=== PATIENT | female | born 1950 | race Caucasian/White ===

== ENCOUNTER → 2018-05-08 15:56 | Outpatient (CLI) | payer MEDICARE, OTHER, SELFPAY ==
[2018-05-08 17:24] LABS: Hemoglobin A1C% w Est Avg Glu 5.5 % (4.0-6.0)
[2018-05-08 17:28] LABS: Blood Urea Nitrogen 28 mg/dL (7-17); Carbon Dioxide 29 mmol/L (22-32); Chloride 103 mmol/L (98-107); Cholesterol 146 mg/dL (140-199); Estimated Glomerular Filt Rate 55.3 mL/min (>60); Glucose 116 mg/dL (80-110); HDL Cholesterol 39 mg/dL (40-60); HEMOLYSIS < 15 (0-50); LDL Cholesterol Calculated 82 mg/dL (<100); Potassium 3.5 mmol/L (3.4-5.1); Sodium 141 mmol/L (137-145); Triglycerides 125 mg/dL (35-150)
== END ==
PROVIDERS: Visit Provider Internal Medicine
DX: I10 Essential (primary) hypertension (principal)
CPT/HCPCS: 36415; 80048; 80061; 83036

== ENCOUNTER 2019-01-02 12:48 | Day surgery (SDC) | payer MEDICARE, OTHER, SELFPAY ==
[2019-01-02 13:34] VITALS: BMI 34.0
[2019-01-02 13:41] VITALS: BP 130/80; PULSE 93; RESP 12; TEMP 36.6; O2SAT 96
[2019-01-02] MEDS: SODIUM CHLORIDE 0.9% 1,000 ML 200 ML IV (13:43)
--- NOTE | 2019-01-02 15:03 | P.HP_ITS ---
History of Present Illness Date Patient Seen: 01/02/19 Time Patient Seen: 15:01 Chief complaint: [id number] Narrative: 68-year-old female with personal history of colon polyps his last colonoscopy was 6 years ago. She presents now for colorectal surveillance. On further history today she denies any recent gastrointestinal symptoms. No nausea, vomiting, abdominal pain, loss of appetite, unexplained weight loss, change in bowel habits, diarrhea, constipation, melena, hematochezia, or bright red blood per rectum. Patient History Medical History HTN (hypertension) (Chronic) Unspecified hereditary and idiopathic peripheral neuropathy (Chronic) Menopause (Chronic) H/O migraine (Chronic) Insomnia (Chronic) H/O adenomatous polyp of colon (Chronic) Hayfever (Chronic) Anemia (Resolved ~1959) Chicken pox (Resolved ~1957) Foot pain (Resolved 2013) Measles (Resolved 1955) Mumps (Resolved 1957) Shoulder pain (Resolved ~2008) Surgical History Anesthesia complication (Resolved) History of back surgery (Resolved ~1990) History of colonoscopy with polypectomy (Resolved 2003) History of colonoscopy with polypectomy (Resolved 2012) History of dilation and curettage (Resolved) History of shoulder surgery (Resolved ~1997) History of tonsillectomy (Resolved 1961) Status post appendectomy (Resolved 1973) Status post ovarian cystectomy (Resolved 1973) Status post wrist surgery (Resolved 1999) Family History Brother Age: 59 Adopted Non-Hodgkins lymphoma Father Parkinson's disease AAA (abdominal aortic aneurysm) Mother Age: 86 Osteoporosis Sister Age: 59 Adopted Polycystic kidney disease Family/Other Colon cancer Family/Other Breast cancer Social History marital status: number of children: 1 household members: spouse and family lives independently: Yes caregiver/support person: No housing: house pets and animals: Yes (2 small dogs, snake, chickens and ducks.) education level: college (BA) occupational status: other (Retired) 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 travel history: recent ([place], yearly.) leisure activities: art (Photography), reading and other (Movies, quitling, writing.) Smoking Status: Never smoker Tobacco: How many years used: 0 quit status: quit date established (Never Started) second hand exposure: Yes (Childhood) alcohol intake: current (Glass of wine occasionally) substance use type: does not use Family & Social History Family History Brother Age: 59 Adopted Non-Hodgkins lymphoma Father Parkinson's disease AAA (abdominal aortic aneurysm) Mother Age: 86 Osteoporosis Sister Age: 59 Adopted Polycystic kidney disease Family/Other Colon cancer Family/Other Breast cancer Social History: household members spouse,family lives independently Yes caregiver/support person No Tobacco & Substance use: Smoking Status Never smoker alcohol intake current Meds Home Medications Medication Instructions Recorded Confirmed Type diphenhydramine HCl 25 mg PO BEDTIME #0 03/21/12 01/02/19 History CALCIUM CITRATE/VITAMIN D3 1 tab PO BID #0 04/18/13 12/16/18 History potassium chloride ER 10 mEq 10 meq PO QDAY #90 tab 10/02/18 01/02/19 Rx tablet,extended release triamterene 37.5 1 tab PO DAILY #90 tab 10/03/18 01/02/19 Rx mg-hydrochlorothiazide 25 mg tablet tolterodine ER 2 mg 2 mg PO DAILY #30 cap 12/16/18 01/02/19 Rx capsule,extended release 24 hr flaxseed oil 1,400 mg PO DAILY 01/02/19 01/02/19 History ranitidine HCl 150 mg PO BEDTIME 01/02/19 01/02/19 History Allergies Allergy/AdvReac Type Severity Reaction Status Date / Time adhesive [ADHESIVE] Allergy Mild TAPE--RASH Verified 01/02/19 13:31 ibuprofen [IBUPROFEN] AdvReac Mild SWELLS Verified 01/02/19 13:31 Review of Systems Review of Systems All systems reviewed & are unremarkable except as noted in HPI and below Exam Vital Signs (past 8 hours): - 01/02/19 13:41 Temperature 97.9 F Pulse Rate 93 H Respiratory Rate 12 Blood Pressure 130/80 Pulse Oximetry 96 Oxygen Delivery Method Room Air Narrative Exam Narrative: Well-nourished well-developed female in no acute distress. Alert oriented x3. Her accompanies her for my entire visit sclera nonicteric regular rate and rhythm abdomen soft, nondistended, nontender, no masses extremities show no clubbing or cyanosis Objective Labs Labs: no recent laboratory or radiographic studies for review Assessment & Plan Assessment & Plan narrative: 68-year-old female with personal history of colon polyps who presents now for colorectal surveillance. Colonoscopy is once again recommended. Technical details of the procedure were discussed. Risks, benefits, alternatives were explained. Risks including but not limited to sedation, aspiration, bleeding, pain, missed lesion, incomplete examination, need for further radiographic studies, colonic perforation, need for major abdominal surgery, and all attendant risks of major surgery were explained at [facility]. All questions were answered to her satisfaction, and she voiced understanding. Consent was placed on the chart. We will proceed as above.
--- NOTE | 2019-01-02 15:03 | PM.PREOP ---
Pre-operative Note Interval Note History & Physical reviewed/Exam performed by Physician: Yes Changes to H&P: No H&P completed within 30 days and has changed as indicated here:: Patient seen and examined today. History and physical examination placed on the chart. Obviously, no changes in the last 15 min. Proceed with colonoscopy today as planned. ASA Class (for procedural sedation): II
[2019-01-02] MEDS: fentaNYL 250 MCG/5 ML INJ IV (15:14)
[2019-01-02] MEDS: MIDAZOLAM 5 MG/5 ML VIAL IV (15:15)
--- NOTE | 2019-01-02 15:27 | PM.OP.ENDO ---
Operative Date/Time/Diagnoses Date of procedure: 01/02/19 Time of procedure: 15:27 Pre-op diagnosis: Personal history of colon polyps Post-op diagnosis: other ( diverticulosis but otherwise normal colon and rectum) Procedure & Clinicians Study performed: 1. Sedation per surgeon 2. Colonoscopy Same procedure as scheduled: Yes Indications: 68-year-old female with personal history of colon polyps. Last examination for such was 6 years ago. Colonoscopy is currently recommended. Surgeon: Hector Croft Procedure Notes SCOAP/Timeout: yes Procedure in detail: After obtaining informed consent, the patient was brought to the GI suite and placed in the left lateral decubitus position on the examination table. After placement of appropriate monitors, the patient was given incremental doses of Versed and Fentanyl until an appropriate level of sedation was achieved. A time out was held per SCOAP protocol. A digital rectal examination was performed and did not reveal any masses or obstructing lesions. The colonoscope was gently passed into the patient's anus and the entire colon navigated to the level of the cecum with minimal difficulty. Once in the cecum, the scope was withdrawn being sure to go before and beyond all mucosal folds and prominences and get an excellent examination. The findings are noted above. At the level of the rectal vault, the scope was retroflexed and the internal anal canal was examined. The scope was straightened and air aspirated from the colon. The instrument was removed from the patient's body and the procedure was concluded. The patient was allowed to awaken from sedation without difficulty and taken to the post-anesthesia care unit in good condition. Scope withdrawal time: 8:56 min Sedation minutes: 19 Findings: diverticulosis Specimen(s): none sent Complications: none Recommendations: Colonscopy in 5 years and High fiber diet Plan for aftercare: 1. Discharge home Follow up: as needed Disposition: PACU
[2019-01-02 15:31] VITALS: BP 128/60; PULSE 81; RESP 16; TEMP 36.2; O2SAT 95
[2019-01-02 15:36] VITALS: BP 134/79; PULSE 95; RESP 16; O2SAT 95
[2019-01-02 15:43] VITALS: BP 131/76; PULSE 93; RESP 15; O2SAT 96
[2019-01-02 15:58] VITALS: BP 116/66; PULSE 83; RESP 16; TEMP 36.8; O2SAT 95
== END 2019-01-02 16:13 | disposition home or self-care (01) ==
PROVIDERS: Family Provider Family Medicine; PCP Internal Medicine; Visit Provider Surgery
PROC: 0DJD8ZZ Inspection of Lower Intestinal Tract, Via Natural or Artificial Opening Endoscopic (ICD-10-PCS; CPT 45378; principal; 2019-01-02 15:00)
DX: Z86.010 Personal history of colon polyps (principal); K57.30 Diverticulosis of large intestine without perforation or abscess without bleeding; I10 Essential (primary) hypertension; G60.9 Hereditary and idiopathic neuropathy, unspecified
CPT/HCPCS: G0105; 99152; J2250; J3010

== ENCOUNTER → 2019-07-11 12:26 | Outpatient (CLI) | payer MEDICARE, OTHER, SELFPAY ==
[2019-07-11 13:25] LABS: BUN Creatinine Ratio 18.2 (6-22); Blood Urea Nitrogen 20 mg/dL (7-17); Calcium 10.3 mg/dL (8.4-10.2); Carbon Dioxide 27 mmol/L (22-32); Chloride 106 mmol/L (98-107); Estimated Glomerular Filt Rate 49.2 mL/min (>60); Glucose 87 mg/dL (80-110); HEMOLYSIS < 15 (0-50); Potassium 5.1 mmol/L (3.4-5.1); Sodium 142 mmol/L (137-145)
== END ==
PROVIDERS: PCP Internal Medicine; Visit Provider Internal Medicine
DX: I10 Essential (primary) hypertension (principal)
CPT/HCPCS: 36415; 80048

== ENCOUNTER → 2019-07-26 08:32 | Outpatient (CLI) | payer MEDICARE, OTHER, SELFPAY ==
--- NOTE | 2019-07-26 | DI.MRI.S_ITS ---
PROCEDURE: MR LUMBAR SPINE WO CON INDICATIONS: Low back pain TECHNIQUE: Noncontrast sagittal T1 spin echo and T2 fast echo, sagittal STIR, axial T1 and T2 fast spin echo through the lumbar spine. In cases with scoliosis, additional coronal T2 fast spin echo may be performed. COMPARISON: [facility], , L-SPINE WITHOUT CONTRAST, 06/22/2016, 13:04. FINDINGS: Image quality: Excellent. Alignment and Curvature: There is normal bony alignment. No spondylolisthesis Bone Marrow: Marrow is of normal overall signal. No acute vertebral body compression fractures. Spinal Cord: Conus medullaris terminates at the T12-L1 level. Visualized cord demonstrates normal signal and size. Paraspinous Soft Tissues: No paravertebral masses. L1-L2: Mild broad-based disc bulge and right lateral disc herniation is seen with bilateral facet arthrosis. Mild central canal stenosis and mild right-sided neuroforaminal narrowing is seen. L2-L3: There is decreased intervertebral disc space. Broad-based disc bulge and bilateral facet arthrosis is seen with mild to moderate central canal stenosis and mild right-sided neuroforaminal narrowing. L3-L4: Broad-based disc bulge and bilateral facet arthrosis is seen with hypertrophy of ligamentum flavum. Decreased intervertebral disc space is also noted. There is moderate to severe central canal stenosis and mild to moderate right-sided neuroforaminal narrowing. L4-L5: Decreased intervertebral disc space is seen. Broad-based disc bulge and bilateral facet arthrosis with hypertrophy of ligamentum flavum is seen with moderate to severe central canal stenosis and moderate to severe bilateral neuroforaminal narrowing. Bulging disc likely contacting exiting bilateral L4 nerve roots at this level. L5-S1: Decreased intervertebral disc space is seen. Diffuse disc bulge and bilateral facet arthrosis is seen. There is mild central canal stenosis and moderate to severe bilateral neuroforaminal narrowing. IMPRESSION: 1. Degenerative disc bulge and bilateral facet arthrosis throughout lumbar spine causing moderate to severe central canal stenosis and bilateral neuroforaminal narrowing more prominent at L3-4 and L4-5 levels as described in detail above. Finding has progressed since 2016 study. 2. No marrow edema. No acute compression fracture or spondylolisthesis. Dictated by: Alan Torres M.D. on 07/28/2019 at 10:35 Approved by: Alan Torres M.D. on 07/28/2019 at 10:38
== END ==
PROVIDERS: PCP Internal Medicine; Visit Provider Physical Medicine & Rehabilitation Pain Medicine
DX: M51.26 Other intervertebral disc displacement, lumbar region (principal); M51.27 Other intervertebral disc displacement, lumbosacral region; M47.816 Spondylosis without myelopathy or radiculopathy, lumbar region; M47.817 Spondylosis without myelopathy or radiculopathy, lumbosacral region; M48.061 Spinal stenosis, lumbar region without neurogenic claudication; M48.07 Spinal stenosis, lumbosacral region
CPT/HCPCS: 72148

== ENCOUNTER → 2020-09-20 13:36 | Outpatient (CLI) | payer MEDICARE, OTHER, SELFPAY ==
[2020-09-20 14:09] LABS: Alanine Aminotransferase 26 IU/L (<35); Albumin 4.2 g/dL (3.5-5.0); Albumin Globulin Ratio 1.2 (1.0-2.8); Alkaline Phosphatase 102 U/L (38-126); Aspartate Aminotransferase 32 IU/L (14-36); BUN Creatinine Ratio 22.1 (6-22); Bilirubin Total 0.4 mg/dL (0.2-1.3); Blood Urea Nitrogen 21 mg/dL (7-17); Carbon Dioxide 31 mmol/L (22-32); Chloride 105 mmol/L (98-107); Estimated Glomerular Filt Rate 58.2 mL/min (>60); Globulin 3.4 g/dL (1.7-4.1); Glucose 91 mg/dL (80-110); HEMOLYSIS < 15 (0-50); Potassium 4.1 mmol/L (3.4-5.1); Sodium 141 mmol/L (137-145); Total Protein 7.6 g/dL (6.3-8.2)
== END ==
PROVIDERS: PCP Internal Medicine; Referring Provider Internal Medicine; Visit Provider Internal Medicine
DX: I10 Essential (primary) hypertension (principal); N39.41 Urge incontinence
CPT/HCPCS: 36415; 80053

== ENCOUNTER → 2021-07-25 11:03 | Outpatient (CLI) | payer MEDICARE, OTHER, SELFPAY ==
[2021-07-25 12:08] LABS: Alanine Aminotransferase 19 IU/L (<35); Albumin 3.9 g/dL (3.5-5.0); Albumin Globulin Ratio 1.4 (1.0-2.8); Alkaline Phosphatase 73 U/L (38-126); Aspartate Aminotransferase 26 IU/L (14-36); BUN Creatinine Ratio 24.2 (6-22); Bilirubin Total 0.4 mg/dL (0.2-1.3); Blood Urea Nitrogen 22 mg/dL (7-17); Calcium 10.2 mg/dL (8.4-10.2); Carbon Dioxide 26 mmol/L (22-32); Chloride 109 mmol/L (98-107); Estimated Glomerular Filt Rate > 60.0 mL/min (>60); Globulin 2.7 g/dL (1.7-4.1); Glucose 88 mg/dL (80-110); HEMOLYSIS < 15 (0-50); Sodium 141 mmol/L (137-145); Total Protein 6.6 g/dL (6.3-8.2)
[2021-07-25 12:39] LABS: TSH w/ Reflex to FT4 0.38 uIU/mL (0.47-4.68)
[2021-07-25 13:06] LABS: Free T4, Direct Thyroxine 1.18 ng/dL (0.78-2.19)
== END ==
PROVIDERS: PCP Internal Medicine; Referring Provider Internal Medicine; Visit Provider Internal Medicine
DX: I10 Essential (primary) hypertension (principal); L65.9 Nonscarring hair loss, unspecified; N39.41 Urge incontinence
CPT/HCPCS: 36415; 80053; 84439; 84443

== ENCOUNTER → 2021-09-06 11:44 | Outpatient (CLI) | payer MEDICARE, OTHER, SELFPAY ==
--- NOTE | 2021-09-06 11:46 | DI.MG.S_ITS ---
BILATERAL DIGITAL SCREENING MAMMOGRAM 3D/2D WITH CAD: 09/06/2021 CLINICAL: Routine screening. Family history of breast cancer. Comparison is made to exams dated: 01/14/2018 mammogram, 01/06/2015 mammogram, and 07/22/2012 mammogram - [facility]. The tissue of both breasts is heterogeneously dense. This may lower the sensitivity of mammography. Current study was also evaluated with a Computer Aided Detection (CAD) system. No significant masses, calcifications, or other findings are seen in either breast. There has been no significant interval change. IMPRESSION: NEGATIVE There is no mammographic evidence of malignancy. A 1 year screening mammogram is recommended. This exam was interpreted at Station ID: [id number]. NOTE: For mammograms, a report in lay terms will be sent to the patient. Approximately 15% of breast malignancies will not be visualized mammographically. In the management of a palpable breast mass, a negative mammogram must not discourage biopsy of a clinically suspicious lesion. Electronically Signed By: Bernardino juan/linda:09/06/2021 12:55:29 letter sent: Normal Exam ACR BI-RADS Category 1: Negative [id number]
== END ==
PROVIDERS: PCP Internal Medicine; Referring Provider Internal Medicine; Visit Provider Internal Medicine
DX: Z12.31 Encounter for screening mammogram for malignant neoplasm of breast (principal); Z80.3 Family history of malignant neoplasm of breast
CPT/HCPCS: 77063; 77067

== ENCOUNTER → 2021-09-27 11:56 | Outpatient (CLI) | payer MEDICARE, OTHER, SELFPAY | PROVIDERS: PCP Internal Medicine; Visit Provider Urology | DX: N39.41 Urge incontinence (principal); R30.0 Dysuria; R35.0 Frequency of micturition; R82.81 Pyuria; Z78.0 Asymptomatic menopausal state | CPT/HCPCS: 81002; 87086; 99215 ==

== ENCOUNTER → 2021-10-13 13:03 | Outpatient (CLI) | payer MEDICARE, OTHER, SELFPAY | PROVIDERS: PCP Internal Medicine; Visit Provider Specialist | DX: R30.0 Dysuria (principal); N39.41 Urge incontinence | CPT/HCPCS: 51701; 87086 ==

== ENCOUNTER → 2022-11-30 16:31 | Outpatient (CLI) | payer MEDICARE, OTHER, SELFPAY ==
--- NOTE | 2022-11-30 16:34 | DI.MG.S_ITS ---
BILATERAL DIGITAL SCREENING MAMMOGRAM 3D/2D WITH CAD: 11/30/2022 CLINICAL: Routine screening. Family history of breast cancer. Comparison is made to exams dated: 09/06/2021 mammogram and 01/14/2018 mammogram - [facility]. Both breasts are heterogeneously dense, which may obscure small masses (category c / 51-75% glandular tissue). Current study was also evaluated with a Computer Aided Detection (CAD) system. No significant masses, calcifications, or other findings are seen in either breast. There has been no significant interval change. IMPRESSION: NEGATIVE There is no mammographic evidence of malignancy. A 1 year screening mammogram is recommended. Based on the Tyrer Cuzick model (a risk assessment model) the patient's lifetime risk is 7.7% and her 10 year risk is 5.8%. According to the ACR, ACS, and NCCN guidelines, an annual breast MRI exam along with mammogram is recommended if the patient's lifetime risk is 20% or greater. This exam was interpreted at Station ID: [id number]. NOTE: For mammograms, a report in lay terms will be sent to the patient. Approximately 15% of breast malignancies will not be visualized mammographically. In the management of a palpable breast mass, a negative mammogram must not discourage biopsy of a clinically suspicious lesion. Electronically Signed By: Bernardino juan/linda:12/01/2022 10:22:32 letter sent: Normal Exam ACR BI-RADS Category 1: Negative [id number]
== END ==
PROVIDERS: PCP Internal Medicine; Referring Provider Internal Medicine; Visit Provider Internal Medicine
DX: Z12.31 Encounter for screening mammogram for malignant neoplasm of breast (principal); Z80.3 Family history of malignant neoplasm of breast
CPT/HCPCS: 77063; 77067

== ENCOUNTER → 2022-12-05 11:26 | Outpatient (CLI) | payer MEDICARE, OTHER, SELFPAY | PROVIDERS: PCP Internal Medicine; Visit Provider Urology | DX: N39.0 Urinary tract infection, site not specified (principal); N32.81 Overactive bladder; N39.41 Urge incontinence | CPT/HCPCS: 81002; 87086; 99214 ==

== ENCOUNTER → 2024-01-08 15:27 | Outpatient (CLI) | payer MEDICARE, OTHER, SELFPAY ==
[2024-01-08 17:20] LABS: Add Manual Diff / Slide Review NO; Basophils Absolute Auto 100 /uL (0-100); Basophils Percent Auto 1.3 % (0-2); Eosinophils Absolute Auto 400 /uL (0-450); Hematocrit 41.2 % (36-46); Hemoglobin 13.8 g/dL (12.0-16.0); Lymphocytes Absolute Auto 2100 /uL (1100-4500); Lymphocytes Percent Auto 32.5 % (25-40); Mean Corpuscular HGB Conc 33.4 % (30-36); Mean Corpuscular Hemoglobin 29.9 PG (26-34); Mean Corpuscular Volume 89.6 fL (80-100); Monocytes Absolute Auto 1000 /uL (0-900); Monocytes Percent Auto 15.9 % (3-14); Neutrophils Absolute Auto 2900 /uL (1500-7000); Neutrophils Percent Auto 44.3 % (50-75); Platelet Count 221 X10^3/uL (150-400); Red Cell Distribution Width 14.4 % (11.6-14.8); White Blood Cell Count 6.6 X10^3/uL (4.5-11.0)
[2024-01-08 17:42] LABS: Alanine Aminotransferase 26 IU/L (<35); Albumin 3.9 g/dL (3.5-5.0); Albumin Globulin Ratio 1.1 (1.0-2.8); Alkaline Phosphatase 97 U/L (38-126); Aspartate Aminotransferase 30 IU/L (14-36); BUN Creatinine Ratio 30.6 (6-22); Bilirubin Total 0.5 mg/dL (0.2-1.3); Blood Urea Nitrogen 26 mg/dL (7-17); Calcium 9.8 mg/dL (8.4-10.2); Carbon Dioxide 26 mmol/L (22-32); Chloride 110 mmol/L (98-107); Estimated Glomerular Filt Rate > 60 mL/min (>60); Globulin 3.5 g/dL (1.7-4.1); Glucose 75 mg/dL (80-110); HEMOLYSIS < 15 (0-50); Sodium 140 mmol/L (137-145); Total Protein 7.4 g/dL (6.3-8.2)
[2024-01-08 18:01] LABS: Free T4, Direct Thyroxine 1.08 ng/dL (0.78-2.19)
== END ==
PROVIDERS: PCP Internal Medicine; Referring Provider Internal Medicine; Visit Provider Internal Medicine
DX: I10 Essential (primary) hypertension (principal); F43.0 Acute stress reaction; G47.00 Insomnia, unspecified; R63.5 Abnormal weight gain; E03.9 Hypothyroidism, unspecified
CPT/HCPCS: 36415; 80053; 84439; 84443; 85025

== ENCOUNTER 2024-01-21 09:02 | Emergency (ER) | payer MEDICARE, OTHER, SELFPAY ==
[2024-01-21 09:13] VITALS: BP 134/78; PULSE 75; RESP 14; TEMP 36.7; O2SAT 99; BMI 32.8
--- NOTE | 2024-01-21 09:18 | DI.RAD.S_ITS ---
PROCEDURE: XR ANKLE LT MIN 3V INDICATIONS: fall 1 week ago, continued swelling. TECHNIQUE: 3 views of the ankle were acquired. COMPARISON: None. FINDINGS: Bones: A few small osseous fragments are seen along the lateral ankle they could represent small avulsion fracture fragments of uncertain age. Ankle mortise is normally aligned. No suspicious bony lesions. Small plantar and posterior calcaneal enthesophytes. Soft tissues: Prominent soft tissue edema is seen surrounding the ankle. IMPRESSION: Small osseous fragments at the lateral ankle could indicate small avulsion fracture fragments. Soft tissue edema surrounding the ankle. Approved by: Bernardino Andres M.D. on 01/21/2024 at 10:04
[2024-01-21 09:38] VITALS: PULSE 78
--- NOTE | 2024-01-21 10:17 | ED.LOWEXIN ---
HPI - Extremity Injury (Lower) General Chief Complaint: Extremity Injury, Lower Stated Complaint: fall x1wk ankle injury not better Time Seen by Provider: 01/21/24 10:17 Source: patient and family Mode of arrival: Ambulatory History of Present Illness HPI Narrative: 73-year-old female with history of hypertension who presents with complaint of left ankle injury a week ago. Patient states she was going down the stairs fell or tripped out about 3. She did invert her ankle. She had quite a bit of swelling and bruising from the ankle down into the foot. She did have an abrasion which she states seems to scabbed over and healing. She continues to be painful with weight-bearing. Pain is over the lateral malleolus. Has not really improved over the last week so she was concerned that she might have done more than sprain. She denies any other injuries. No anticoagulants. No new numbness or tingling. She has a lot of fullness in the foot. She states the abrasion does not appear to be infected, there has been no drainage or other changes to the skin. She is unsure of her last tetanus. No prior surgeries to her ankles but has sprain them in the past. Related Data Home Medications Medication Instructions Recorded Confirmed flaxseed oil 1,000 mg capsule 1,400 mg PO DAILY 01/02/19 01/08/24 ranitidine HCl 150 mg tablet 150 mg PO BEDTIME 01/02/19 01/08/24 CALCIUM CITRATE/VITAMIN D3 Chewable See Rx Instructions PO BID 02/20/20 01/08/24 Previous Rx's Medication Instructions Recorded ondansetron 4 mg disintegrating 4 mg PO Q8H PRN nausea and 04/25/21 tablet vomiting #30 tabs triamterene 37.5 1 tab PO DAILY #90 tabs 01/08/23 mg-hydrochlorothiazide 25 mg tablet potassium chloride 10 mEq 10 meq PO QDAY #90 tabs 06/20/23 tablet,extended release duloxetine 40 mg capsule,delayed 40 mg PO DAILY #90 caps 01/08/24 release lorazepam 1 mg tablet 1 mg PO BEDTIME PRN sleep #30 tabs 01/08/24 solifenacin 5 mg tablet 5 mg PO DAILY #90 tabs 01/08/24 Allergies Allergy/AdvReac Type Severity Reaction Status Date / Time adhesive [ADHESIVE] Allergy Mild TAPE--RASH Verified 01/21/24 09:16 ibuprofen [IBUPROFEN] AdvReac Mild SWELLS Verified 01/21/24 09:16 Review of Systems Review of Systems ROS Unobtainable: All systems reviewed & are unremarkable except as noted in HPI and below Patient History Medical History Overactive bladder Stress reaction Depression Arthritis Chronic UTI H/O adenomatous polyp of colon H/O migraine Unspecified hereditary and idiopathic peripheral neuropathy Menopause Insomnia HTN (hypertension) Shoulder pain (~2008) Anemia (~1959) Hayfever Foot pain (2013) Surgical History History of colonoscopy with polypectomy (2012) History of colonoscopy with polypectomy (2003) History of dilation and curettage Anesthesia complication Status post wrist surgery (1999) History of shoulder surgery (~1997) History of back surgery (~1990) Status post appendectomy (1973) Status post ovarian cystectomy (1973) History of tonsillectomy (1961) Family History Brother Age: 64 Adopted Non-Hodgkins lymphoma Father Parkinson's disease AAA (abdominal aortic aneurysm) Mother Age: 91 Osteoporosis Sister Age: 64 Adopted Polycystic kidney disease Family/Other Colon cancer Family/Other Breast cancer Social History marital status: number of children: 1 household members: spouse and family lives independently: Yes caregiver/support person: No housing: house pets and animals: Yes (2 small dogs, snake, chickens and ducks.) education level: college (BA) occupational status: other (Retired) 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 travel history: recent ([place], yearly.) leisure activities: art (Photography), reading and other (Movies, quitling, writing.) Smoking Status: Never smoker Tobacco: How many years used: 0 quit status: quit date established (Never Started) second hand exposure: Yes (Childhood) alcohol intake: current (Glass of wine occasionally) substance use type: does not use Smoking Status: Never smoker alcohol intake frequency: 0-2 drinks per day Substance Use Type: does not use Exam Narrative Exam Narrative: GENERAL: Alert and oriented x three, female in mild distress HEENT: Head normocephalic, atraumatic, EOMI, pupils reactive, face symmetric, moist mucous membranes NECK: Supple, full range of motion EXTREMITIES: Decreased range of motion at the ankle, normal range of motion of toes and left lower extremity. Patient has quite a bit of swelling, ecchymosis over the lateral malleoli over the dorsum of the foot and into the toes. Has various stages of coloration and healing. Patient does have a scab over the anterior talar region which is clean dry and appears to be healing well that has approximately a cm by 3 cm. There is no surrounding erythema, drainage. Patient has tenderness over the lateral malleolus, none over the medial. Toes are nontender. Patient has cap refill less 2 seconds serial the foot, positive dorsalis pedis pulse., no clubbing or edema. Neurovascularly intact NEUROLOGICAL: Cranial nerves II through XII grossly intact. Moving all extremities SKIN: Warm, dry, no petechiae, no rashes or lesions. Initial Vital Signs Initial Vital Signs: Vital Signs Temperature 98.1 F 01/21/24 09:13 Pulse Rate 75 01/21/24 09:13 Respiratory Rate 14 01/21/24 09:13 Blood Pressure 134/78 01/21/24 09:13 Pulse Oximetry 99 01/21/24 09:13 Oxygen Delivery Method Room Air 01/21/24 09:13 Course Orders Ordered: Discontinued Medications Diphtheria/Tetanus/Acell Pertussis (Tet,Diph,Pertuss(Acell),Vac/Pf 0.5 Ml Syringe) 0.5 ml IM .ONCE ONE Stop: 01/21/24 10:25 Last Admin: 01/21/24 10:49 Dose: 0.5 ml Documented By: SPF Vital Signs Vital signs: Vital Signs - 8 hr 01/21/24 11:30 Pulse Rate 75 Respiratory Rate 18 Pulse Oximetry 97 Oxygen Delivery Method Room Air MDM - Extremity Injury (Lower) Imaging Data Extremity x-ray #1: Radiologist's Impression: [address] [address] XRay Report Signed Patient: Tino Shaw MR#: [id number] : 1950 Acct:[id number] Age/Sex: 73 / F Date of Service: 01/21/24 Loc: ED Accession Number: [id number] Procedure: XR ankle LT min 3V Ordering Provider: Nataliia Lyn D.O. PROCEDURE: XR ANKLE LT MIN 3V INDICATIONS: fall 1 week ago, continued swelling. TECHNIQUE: 3 views of the ankle were acquired. COMPARISON: None. FINDINGS: Bones: A few small osseous fragments are seen along the lateral ankle they could represent small avulsion fracture fragments of uncertain age. Ankle mortise is normally aligned. No suspicious bony lesions. Small plantar and posterior calcaneal enthesophytes. Soft tissues: Prominent soft tissue edema is seen surrounding the ankle. IMPRESSION: Small osseous fragments at the lateral ankle could indicate small avulsion fracture fragments. Soft tissue edema surrounding the ankle. Approved by: Bernardino Andres M.D. on 01/21/2024 at 10:04 [facility] Narrative Medical decision making narrative: 73-year-old female with the ankle injury approximately week ago quite a bit of swelling, ecchymosis and has tenderness over the lateral malleoli with pain with weight-bearing. Patient has not abrasion but appears to be healing well. Tetanus updated x-ray does show some fragments consistent with injury/fracture. Plan for orthopedic boot, crutches and toe-touch weight-bearing with follow-up. Patient feels comfortable with this plan. Discharge Plan Departure Patient Disposition: Home Clinical Impression: Ankle fracture Activity Restrictions/Additional Instructions: Follow up with Orthopedic surgery in the next week. Please call for an appointment. You may toe-touch weightbear, use crutches as needed. You may take Tylenol up to a 1000 mg every 6 hours. Splint Care: Keep splint clean and dry. Elevated affected body part to decrease swelling. OK to use ice pack on the affected body part. Use for 15-20 minutes each time, for 5-6x per day. If you develop worsening pain, numbness, tingling, discoloration of the affected body part, loosen the splint by loosening the COLLEEN wrap, and either see your doctor for an urgent re-assessment, or return to the Emergency Department. Return to the Emergency Department for any new or worsening symptoms. Prescriptions: No Action CALCIUM CITRATE/VITAMIN D3 Chewable See Rx Instructions PO BID Rx Instructions: 2 500mg tabs once a day. triamterene-hydrochlorothiazid 37.5-25 mg tablet 1 tab PO DAILY Qty: 90 3RF potassium chloride 10 mEq tablet extended release 10 meq PO QDAY Qty: 90 3RF ondansetron 4 mg tablet,disintegrating 4 mg PO Q8H PRN (Reason: nausea and vomiting) Qty: 30 3RF solifenacin 5 mg tablet 5 mg PO DAILY Qty: 90 3RF lorazepam 1 mg tablet 1 mg PO BEDTIME PRN (Reason: sleep) Qty: 30 0RF duloxetine 40 mg capsule,delayed release(DR/EC) 40 mg PO DAILY Qty: 90 3RF ranitidine HCl 150 mg Tablet 150 mg PO BEDTIME flaxseed oil 1,000 mg capsule 1,400 mg PO DAILY Referrals: Monty Pham MD [Physician] - Jeremy Joy MD [Primary Care Provider] - Stand Alone Forms: Patient Portal/API
[2024-01-21] MEDS: TET,DIPH,PERTUSS(ACELL),VAC/PF 0.5 ML SYRINGE IM (10:49)
[2024-01-21 11:30] VITALS: PULSE 75; RESP 18; O2SAT 97
== END 2024-01-21 11:37 | disposition home or self-care (01) ==
PROVIDERS: Emergency Provider Emergency Medicine; PCP Internal Medicine
DX: S82.62XA Displaced fracture of lateral malleolus of left fibula, initial encounter for closed fracture (principal); W10.9XXA Fall (on) (from) unspecified stairs and steps, initial encounter; Z23 Encounter for immunization
CPT/HCPCS: 73610; 90471; 99283; 99284; 90715

== ENCOUNTER → 2025-05-18 14:12 | Outpatient (CLI) | payer MEDICARE, OTHER, SELFPAY ==
--- NOTE | 2025-05-18 14:15 | DI.RAD.S_ITS ---
PROCEDURE: XR CHEST 2V INDICATIONS: cough TECHNIQUE: 2 views of the chest were acquired. COMPARISON: [facility], , CHEST 2 VIEW, 06/03/2014, 9:05. FINDINGS: Heart, mediastinum and pulmonary vasculature: Heart is normal in size and configuration. Mediastinum is unremarkable. Pulmonary vascular is normal. Lungs: Clear Pleural spaces: Normal-no effusions or pneumothorax. Mild chronic elevation right diaphragm unchanged IMPRESSION: No acute disease. Dictated by: Jeremy Castellanos M.D. on 05/19/2025 at 10:18 Approved by: Jeremy Castellanos M.D. on 05/19/2025 at 10:19
== END ==
PROVIDERS: PCP Internal Medicine; Referring Provider Internal Medicine; Visit Provider Internal Medicine
DX: R05.9 Cough, unspecified (principal); J98.6 Disorders of diaphragm
CPT/HCPCS: 71046